=== PATIENT | male | born 1950 | race Caucasian/White ===

== ENCOUNTER 2018-02-16 14:02 | Inpatient (IN) | payer MEDICARE, OTHER ==
[~2018-02-16] VITALS: Ht 170.2 cm; Wt 59.9 kg
[2018-02-16] MEDS ORDERED: MORPHINE SULFATE 2 MG/1 ML DISP.SYRIN IV ONE ×2 (14:31→15:30)
[2018-02-16] MEDS ORDERED: TRAM50TA2 PO (14:32)
[2018-02-16] MEDS ORDERED: ERGO500040 PO (14:32)
[2018-02-16] MEDS ORDERED: TAMS0.4C34 PO (14:32)
[2018-02-16] MEDS ORDERED: FENO134C PO (14:32)
[2018-02-16] MEDS ORDERED: LEVO50TA8 PO (14:32)
[2018-02-16] MEDS ORDERED: CARV12.52 PO (14:32)
[2018-02-16] MEDS ORDERED: PANT40TA4 PO (14:32)
[2018-02-16] MEDS ORDERED: ASPI81TA31 PO (14:32)
[2018-02-16] MEDS ORDERED: COAL21.2 TP (14:32)
[2018-02-16] MEDS ORDERED: LISI2.5T2 PO (14:32)
[2018-02-16] MEDS ORDERED: SWABABLE VALVE TRANSFER SET EA MC ONE (14:34)
[2018-02-16] MEDS ORDERED: IOHEXOL 300MG/ML 100 ML INFUS..BTL ONE (14:34)
[2018-02-16] MEDS ORDERED: IV NORMAL SALINE 100 ML ONE (14:34)
[2018-02-16] MEDS ORDERED: PANTOPRAZOLE SODIUM IV 40 MG in IV DEXTROSE 5% 100 ML IV ONE (14:45)
[2018-02-16] MEDS ORDERED: ONDANSETRON IV *ER 4 MG/2 ML VIAL IV ONE (14:45)
[2018-02-16] MEDS ORDERED: IV NORMAL SALINE 500 ML IV ONE (14:45)
[2018-02-16 14:49] LABS: BASOPHILS % (AUTO) 0.3 % (0.0-2.0); EOSINOPHILS % (AUTO) 0.2 % (0.0-7.0); HEMATOCRIT 40.2 % (36.7-47.1); HEMOGLOBIN 14.1 g/dL (12.5-16.3); LYMPHOCYTES # (AUTO) 0.9 K/uL (20.0-40.0); LYMPHOCYTES % (AUTO) 9.1 % (20.5-51.5); MEAN CORPUSCULAR HGB CONC 35 g/dL (32.5-36.3); MEAN CORPUSCULAR VOLUME 85.7 fL (73.0-96.2); MONOCYTES # (AUTO) 0.4 K/uL (2.0-10.0); MONOCYTES % (AUTO) 3.9 % (0.0-11.0); NEUTROPHILS # (AUTO) 8.2 K/uL (1.8-8.9); NEUTROPHILS % (AUTO) 86.5 % (38.5-71.5); PLATELET COUNT (AUTO) 280 K/uL (152-348); RED BLOOD CELL COUNT(AUTO) 4.69 MIL/uL (4.06-5.63); WHITE BLOOD COUNT (AUTO) 9.5 K/uL (3.6-10.2)
[2018-02-16] MEDS ORDERED: PANTOPRAZOLE SODIUM 40 MG VIAL ONE (14:50)
[2018-02-16] MEDS ORDERED: ONDANSETRON 4 MG/2 ML VIAL ONE (14:50)
[2018-02-16] MEDS ORDERED: MORPHINE SULFATE 4 MG/1 ML DISP.SYRIN ONE ×2 (14:50→15:29)
[2018-02-16 14:58] LABS: CREATININE 1.1 mg/dL (0.6-1.3); POTASSIUM 4.4 mmol/L (3.5-5.1)
[2018-02-16 15:04] LABS: BILIRUBIN,TOTAL 0.4 mg/dL (0.2-1.0); TOTAL PROTEIN, SERUM 7.8 g/dL (6.4-8.2)
[2018-02-16 16:32] LABS: *BILIRUBIN,URIN NEGATIVE (NEGATIVE); *BLOOD, URINE Trace-intact (NEGATIVE); *CLARITY,URINE CLEAR (CLEAR); *COLOR,URINE YELLOW (YELLOW); *KETONES,URINE NEGATIVE (NEGATIVE); *PROTEIN,URINE 1+ (NEGATIVE); *UROBILINOGEN,URINE 0.2 E.U./dl (NORMAL); LEUKOCYTE ESTERASE ,URINE NEGATIVE (NEGATIVE); NITRITE, URINE NEGATIVE (NEGATIVE); PH,URINE 8.5 (5.0-8.0); UGLUCOSE NEGATIVE (NEGATIVE)
[2018-02-16 16:40] LABS: MUCUS,URINE MANY /LPF (0-FEW); SQUAMOUS EPITHELIAL CELL,UR FEW /HPF (NONE SEEN); WBC,URINE 0-3 /HPF (0-3)
[2018-02-16] MEDS ORDERED: HYDROMORPHONE 2 MG/1 ML DISP.SYRIN ONE (16:42)
[2018-02-16] MEDS ORDERED: HYDROMORPHONE 1 MG/1 ML DISP.SYRIN IV ONE (16:45)
--- NOTE | 2018-02-16 17:18 | NUR ---
ALL MD ORDERS COMPLETED, PT'S FAMILY AT THE BEDSIDE, MEDS ADMINISTERED, AWAITING FOR VINI LUNSFORD MD TO CALL BACK.
--- NOTE | 2018-02-16 18:10 | NUR ---
SBAR REPORT TO [facility]OK[facility], BELONGINGS LIST DONE. AWAITING FOR VINI LUNSFORD MD TO CALL BACK.
--- NOTE | 2018-02-16 18:50 | NUR ---
PT TO RM 221 VIA [facility].
--- NOTE | 2018-02-16 18:55 | NUR ---
Patient arrived on m/s unit and vitals recorded. Report given to evening or night nurse supervisor nurse to admit.
[2018-02-16 19:01] VITALS: BP 164/70
--- NOTE | 2018-02-16 20:00 | NUR ---
Received pt AAO x 4 with at bedside. Room and unit orientation provided. No s/s of acute distress noted at this time. Bed in low, locked position. Call light within reach. Will continue to monitor.
--- NOTE | 2018-02-16 21:00 | NUR ---
Pertinent assessments done. Vital signs WNL. Will continue to monitor.
[2018-02-16] MEDS ORDERED: ONDANSETRON 4 MG/2 ML VIAL IV PRN (21:30)
[2018-02-16] MEDS ORDERED: ERGOCALCIFEROL 50,000 UNIT CAPSULE PO SCH (21:30)
[2018-02-16] MEDS ORDERED: Z GUARD REMEDY PASTE 57 GM TUBE TOP PRN (21:30)
[2018-02-16] MEDS ORDERED: ZOLPIDEM 5 MG TABLET PO PRN (21:30)
[2018-02-16] MEDS ORDERED: MAGNESIUM HYDROXIDE 30 ML LIQUID UDC PO PRN (21:30)
[2018-02-16] MEDS ORDERED: ACETAMINOPHEN 325 MG TABLET PO PRN (21:30)
[2018-02-16] MEDS ORDERED: HYDROMORPHONE 1 MG/1 ML DISP.SYRIN IV PRN (21:30)
[2018-02-16] MEDS ORDERED: TAMSULOSIN HCL 0.4 MG CAP.SR.24H PO SCH (21:45)
[2018-02-16] MEDS ORDERED: CARVEDILOL 12.5 MG TABLET PO ONE (21:45)
[2018-02-16] MEDS: TRAMADOL HCL 50 MG TABLET PO PRN (22:02)
[2018-02-16] MEDS: IV NS 1000 ML 1,000 ML IV PRN (22:03)
[2018-02-16] MEDS: SUCRALFATE 1 G TABLET PO SCH (22:39)
[2018-02-17] VITALS: BP 125/55
[2018-02-17 05:26] VITALS: BP_SYST 116; BP_DIAS 66; BP_DIAS 80
--- NOTE | 2018-02-17 06:00 | NUR ---
No N/V noted throughout the night. Vital signs WNL. Will endorse accordingly.
[2018-02-17] MEDS: SUCRALFATE 1 G TABLET PO SCH ×2 (06:36→11:37)
[2018-02-17] MEDS ORDERED: PANTOPRAZOLE SODIUM 40 MG TABLET.DR PO SCH ×2 (07:00→09:00)
[2018-02-17] MEDS ORDERED: LEVOTHYROXINE SODIUM 50 MCG TABLET PO SCH ×2 (07:00→09:00)
[2018-02-17 07:03] LABS: BASOPHILS % (AUTO) 0.2 % (0.0-2.0); EOSINOPHILS % (AUTO) 0.2 % (0.0-7.0); HEMOGLOBIN 12.9 g/dL (12.5-16.3); LYMPHOCYTES # (AUTO) 1.7 K/uL (20.0-40.0); LYMPHOCYTES % (AUTO) 16.3 % (20.5-51.5); MEAN CORPUSCULAR HEMOGLOBIN 29.7 uug (23.8-33.4); MEAN CORPUSCULAR HGB CONC 35 g/dL (32.5-36.3); MEAN CORPUSCULAR VOLUME 85.4 fL (73.0-96.2); NEUTROPHILS # (AUTO) 7.5 K/uL (1.8-8.9); NEUTROPHILS % (AUTO) 73.3 % (38.5-71.5); PLATELET COUNT (AUTO) 243 K/uL (152-348); RED BLOOD CELL COUNT(AUTO) 4.33 MIL/uL (4.06-5.63); WHITE BLOOD COUNT (AUTO) 10.3 K/uL (3.6-10.2)
[2018-02-17 07:16] LABS: BILIRUBIN,TOTAL 0.3 mg/dL (0.2-1.0); CREATININE 1.1 mg/dL (0.6-1.3); MAGNESIUM 1.6 mg/dL (1.8-2.4); PHOSPHOROUS 3.4 mg/dL (2.5-4.9); POTASSIUM 4.2 mmol/L (3.5-5.1); TOTAL PROTEIN, SERUM 6.2 g/dL (6.4-8.2)
--- NOTE | 2018-02-17 08:00 | NUR ---
AWAKE ALERT AND ORIENTED X3 NO SS OF PAIN OR DISTRESS, SR ON MONITOR
--- NOTE | 2018-02-17 08:44 | NUR ---
protonix po given at 0647
[2018-02-17] MEDS ORDERED: ASPIRIN 81 MG TAB.CHEW PO SCH (09:00)
[2018-02-17] MEDS ORDERED: TAMSULOSIN HCL 0.4 MG CAP.SR.24H PO SCH ×2 (09:00)
[2018-02-17] MEDS ORDERED: CARVEDILOL 12.5 MG TABLET PO SCH (09:00)
[2018-02-17] MEDS ORDERED: LISINOPRIL 5 MG TABLET PO SCH (09:00)
[2018-02-17] MEDS ORDERED: KETOCONAZOLE 2% CREAM 30 GM TUBE TP SCH (09:00)
--- NOTE | 2018-02-17 10:00 | NUR ---
HOSPITALIST NOTED LABS WITH ORDER FOR MAGNESIUM REPLACEMENT
[2018-02-17] MEDS ORDERED: HYDROMORPHONE 2 MG/1 ML DISP.SYRIN IV PRN (10:45)
[2018-02-17] MEDS: MAGNESIUM SULFATE/D5W 100 ML IV SCH ×4 (11:09→13:32)
[2018-02-17 11:10] VITALS: BP 108/46
[2018-02-17] MEDS: IV NS 1000 ML 1,000 ML IV PRN (11:18)
[2018-02-17] MEDS: TRAMADOL HCL 50 MG TABLET PO PRN (11:18)
--- NOTE | 2018-02-17 12:00 | NUR ---
SEEN BY DR LICEA WITH DC ORDER, DIVER TENDER MADE AWARE SO WITH FAMILY
[2018-02-17 15:06] VITALS: BP 112/52
--- NOTE | 2018-02-17 16:28 | NUR ---
DCD HOME STABLE ACCOMPANIED BY WITH FOLLOW-UP INSTRUCTION
== END 2018-02-17 16:25 | disposition home or self-care (01) | DRG 391 ==
LOC: ER 14:04 → MED 18:40 → TELE 02-17 01:45 → MED 02-17 12:18
PROVIDERS: ADMIT Nurse Practitioner Acute Care; ATTEND Nurse Practitioner Acute Care
DX: K21.9 Gastro-esophageal reflux disease without esophagitis (principal); N17.0 Acute kidney failure with tubular necrosis; R10.9 Unspecified abdominal pain; C61 Malignant neoplasm of prostate; I10 Essential (primary) hypertension; I25.10 Atherosclerotic heart disease of native coronary artery without angina pectoris; E03.9 Hypothyroidism, unspecified; I25.2 Old myocardial infarction; I25.5 Ischemic cardiomyopathy; Z87.891 Personal history of nicotine dependence; Z92.3 Personal history of irradiation; Z95.0 Presence of cardiac pacemaker; Z95.1 Presence of aortocoronary bypass graft; L21.9 Seborrheic dermatitis, unspecified; Z79.899 Other long term (current) drug therapy; R93.5 Abnormal findings on diagnostic imaging of other abdominal regions, including retroperitoneum; K29.70 Gastritis, unspecified, without bleeding
CPT/HCPCS: 36415; 70030-TC; 71045; 83690; 83735; 84100; 85025; 85610; 93005; 93307; A4663; C9113; J1170; J2270; J2405; J3475; J3490; J7030; J7040; Q9967

== ENCOUNTER 2018-06-28 14:32 | Inpatient (IN) | payer MEDICARE, OTHER ==
[~2018-06-28] VITALS: Ht 170.2 cm; Wt 62.6 kg
[~2018-06-28 14:32] MED LIST: ASPI81TA31 PO; CARV12.52 PO; COAL21.2 TP; ERGO500040 PO; FENO134C PO; LEVO50TA8 PO; LISI2.5T2 PO; PANT40TA4 PO; TAMS0.4C34 PO; TRAM50TA2 PO
[2018-06-28] MEDS ORDERED: MORPHINE SULFATE 4 MG/1 ML DISP.SYRIN IV ONE ×2 (14:45→16:00)
[2018-06-28] MEDS ORDERED: ONDANSETRON 4 MG/2 ML VIAL IV ONE (14:45)
[2018-06-28 14:52] LABS: BASOPHILS # (AUTO) 0.1 K/uL (0.0-8.0); BASOPHILS % (AUTO) 0.6 % (0.0-2.0); HEMATOCRIT 41.6 % (36.7-47.1); HEMOGLOBIN 14.4 g/dL (12.5-16.3); LYMPHOCYTES # (AUTO) 0.6 K/uL (20.0-40.0); LYMPHOCYTES % (AUTO) 4.9 % (20.5-51.5); MEAN CORPUSCULAR HGB CONC 35 g/dL (32.5-36.3); MEAN CORPUSCULAR VOLUME 87.1 fL (73.0-96.2); MONOCYTES # (AUTO) 0.6 K/uL (2.0-10.0); MONOCYTES % (AUTO) 4.3 % (0.0-11.0); NEUTROPHILS # (AUTO) 11.7 K/uL (1.8-8.9); NEUTROPHILS % (AUTO) 90.2 % (38.5-71.5); PLATELET COUNT (AUTO) 208 K/uL (152-348); RED BLOOD CELL COUNT(AUTO) 4.78 MIL/uL (4.06-5.63)
[2018-06-28] MEDS ORDERED: ONDANSETRON 4 MG/2 ML VIAL ONE (14:55)
[2018-06-28] MEDS ORDERED: MORPHINE SULFATE 4 MG/1 ML DISP.SYRIN ONE ×2 (14:55→16:10)
[2018-06-28 15:04] LABS: POTASSIUM 4.1 mmol/L (3.5-5.1)
[2018-06-28 15:10] LABS: BILIRUBIN,DIRECT 0.1 mg/dL (0.0-0.2); BILIRUBIN,TOTAL 0.5 mg/dL (0.2-1.0); TOTAL PROTEIN, SERUM 7.6 g/dL (6.4-8.2)
--- NOTE | 2018-06-28 16:00 | NUR ---
Pt signed consent for CT w/ IV contast, placed in the chart.
[2018-06-28 16:03] LABS: *BILIRUBIN,URIN 1+ (NEGATIVE); *BLOOD, URINE Trace-intact (NEGATIVE); *CLARITY,URINE CLEAR (CLEAR); *COLOR,URINE DARK YELLOW (YELLOW); *KETONES,URINE NEGATIVE (NEGATIVE); *PROTEIN,URINE TRACE (NEGATIVE); *UROBILINOGEN,URINE 0.2 E.U./dl (NORMAL); LEUKOCYTE ESTERASE ,URINE NEGATIVE (NEGATIVE); NITRITE, URINE NEGATIVE (NEGATIVE); PH,URINE 6.5 (5.0-8.0); UGLUCOSE NEGATIVE (NEGATIVE)
[2018-06-28 16:09] LABS: BACTERIA,URINE FEW /HPF (NONE SEEN); MUCUS,URINE MODERATE /LPF (0-FEW); RBC,URINE 0-3 /HPF (0-3); SQUAMOUS EPITHELIAL CELL,UR FEW /HPF (NONE SEEN)
--- NOTE | 2018-06-28 16:30 | NUR ---
Pt out of ER for CT.
[2018-06-28] MEDS ORDERED: NORMAL SALINE FLUSH 10 ML DISP.SYRIN ONE (16:52)
[2018-06-28] MEDS ORDERED: IV NORMAL SALINE 250 ML IV ONE (16:52)
[2018-06-28] MEDS ORDERED: IOHEXOL 300MG/ML 100 ML INFUS..BTL ONE (16:52)
[2018-06-28] MEDS ORDERED: SWABABLE VALVE TRANSFER SET EA MC ONE (16:52)
--- NOTE | 2018-06-28 17:13 | NUR ---
Pt back from CT, chichi nausea and pain.
--- NOTE | 2018-06-28 17:36 | NUR ---
Call placed to Dr. Farfan (SURGERY), message left for return call.
[2018-06-28] MEDS ORDERED: CEFTRIAXONE 1 G VIAL ONE (17:55)
[2018-06-28] MEDS ORDERED: METRONIDAZOLE 500 MG/NS 100ML 100 ML IV ONE (17:55)
[2018-06-28] MEDS ORDERED: CHOL500062 PO (17:56)
[2018-06-28] MEDS ORDERED: ESCI10TA PO (17:56)
[2018-06-28] MEDS ORDERED: ICOS1CAP PO (17:56)
[2018-06-28] MEDS ORDERED: METRONIDAZOLE 500 MG/NS 100 ML PIGGYBACK IV ONE (18:00)
[2018-06-28] MEDS ORDERED: CEFTRIAXONE 2 G in IV DEXTROSE 5% 100 ML IV ONE (18:00)
--- NOTE | 2018-06-28 18:00 | NUR ---
JOHN spoke to Dr. Farfan (SURGERY) and Dr. Fuller ([facility]).
[2018-06-28] MEDS ORDERED: ACETAMINOPHEN 325 MG TABLET PO PRN (19:30)
[2018-06-28] MEDS ORDERED: MORPHINE SULFATE 2 MG/1 ML DISP.SYRIN IV PRN (19:30)
[2018-06-28] MEDS ORDERED: MAGNESIUM HYDROXIDE 30 ML LIQUID UDC PO PRN (19:30)
[2018-06-28] MEDS ORDERED: Z GUARD REMEDY PASTE 57 GM TUBE TOP PRN (19:30)
[2018-06-28] MEDS ORDERED: ONDANSETRON 4 MG/2 ML VIAL IV PRN (19:30)
--- NOTE | 2018-06-28 19:30 | NUR ---
Received patient from day shift nurse. Patient is a new admit from ER, arrived to unit at 1900. MD aware of patient arrival. Admit Dx of Cholecystitis. Patient is in stable condition with no acute distress noted. Vital signs within range upon admission. Pertinent assessment completed. A/Ox4, Kazakh speaking, able to speak broken Kyrgyz. Family currently at the bedside. Noted with Left AC IV site 20G running with NS at 75cc/hr. No infiltration or swelling noted at IV site. Patient denies pain & SOB. Call light within reach of patient. Will continue to monitor through shift.
[2018-06-28 19:55] VITALS: BP 152/58
[2018-06-28] MEDS: IV NS 1000 ML 1,000 ML IV PRN (20:00)
[2018-06-28] MEDS ORDERED: PIPERACILLIN/TAZO 4.5 GM VIAL IV ONE (21:29)
[2018-06-28] MEDS: PIPERACILLIN SODIUM/TAZOBACTAM 4.5 G in IV DEXTROSE 5% 50 ML IV SCH (21:40)
--- NOTE | 2018-06-28 21:45 | NUR ---
Spoke with MD Mack about patient with new orders for CBC in AM, Cardio consult for Preop assessment & clearance, & MD ordered Hida scan for tomorrow. Called family & informed them about about consent for Hida scan. Family to come in AM to go over consent with patient. Will carry out orders & continue to monitor through shift.
[2018-06-29 04:13] VITALS: BP 145/56
[2018-06-29] MEDS: PIPERACILLIN SODIUM/TAZOBACTAM 4.5 G in IV DEXTROSE 5% 50 ML IV SCH ×3 (05:30→22:04)
[2018-06-29 05:54] LABS: BASOPHILS % (AUTO) 0.3 % (0.0-2.0); HEMATOCRIT 39.7 % (36.7-47.1); HEMOGLOBIN 13.9 g/dL (12.5-16.3); LYMPHOCYTES % (AUTO) 10.3 % (20.5-51.5); MEAN CORPUSCULAR HEMOGLOBIN 30.4 uug (23.8-33.4); MEAN CORPUSCULAR HGB CONC 35 g/dL (32.5-36.3); MONOCYTES # (AUTO) 0.7 K/uL (2.0-10.0); MONOCYTES % (AUTO) 6.7 % (0.0-11.0); NEUTROPHILS # (AUTO) 8.1 K/uL (1.8-8.9); NEUTROPHILS % (AUTO) 82.7 % (38.5-71.5); PLATELET COUNT (AUTO) 220 K/uL (152-348); RED BLOOD CELL COUNT(AUTO) 4.57 MIL/uL (4.06-5.63); WHITE BLOOD COUNT (AUTO) 9.8 K/uL (3.6-10.2)
[2018-06-29] MEDS: LEVOTHYROXINE SODIUM 50 MCG TABLET PO SCH (06:13)
[2018-06-29 06:21] LABS: BILIRUBIN,TOTAL 0.4 mg/dL (0.2-1.0); CREATININE 1.2 mg/dL (0.6-1.3); MAGNESIUM 1.7 mg/dL (1.8-2.4); PHOSPHOROUS 3.7 mg/dL (2.5-4.9); POTASSIUM 3.9 mmol/L (3.5-5.1); TOTAL PROTEIN, SERUM 6.6 g/dL (6.4-8.2)
--- NOTE | 2018-06-29 06:29 | NUR ---
Patient slept well through shift. No complaints of pain during the night. All needs attended to promptly. Medications administered as per MD order. Per LAB, patient should be NPO for 4 hours prior to Hida Scan. Patient started NPO at 5am. Comfort & safety measures provided to patient. Call light within reach. Will endorse to day shift nurse.
[2018-06-29] MEDS ORDERED: MORPHINE SULFATE 4 MG/1 ML DISP.SYRIN IV PRN (08:15)
[2018-06-29] MEDS: ESCITALOPRAM OXALATE 10 MG TABLET PO SCH (08:20)
[2018-06-29] MEDS: ASPIRIN 81 MG TAB.CHEW PO SCH (08:21)
[2018-06-29] MEDS: CARVEDILOL 12.5 MG TABLET PO SCH ×2 (08:21→17:03)
[2018-06-29] MEDS: TAMSULOSIN HCL 0.4 MG CAP.SR.24H PO SCH (08:21)
[2018-06-29] MEDS: PANTOPRAZOLE SODIUM 40 MG TABLET.DR PO SCH (08:22)
[2018-06-29] MEDS ORDERED: MAGNESIUM SULFATE/D5W 100 ML IV SCH (10:45)
[2018-06-29 11:32] VITALS: BP 126/57
[2018-06-29] MEDS ORDERED: ERGOCALCIFEROL 50,000 UNIT CAPSULE PO SCH (12:00)
[2018-06-29] MEDS: IV NS 1000 ML 1,000 ML IV PRN (15:00)
[2018-06-29 15:48] VITALS: BP 134/56
[2018-06-29 17:45] LABS: *BILIRUBIN,URIN NEGATIVE (NEGATIVE); *BLOOD, URINE Trace-lysed (NEGATIVE); *CLARITY,URINE CLEAR (CLEAR); *COLOR,URINE YELLOW (YELLOW); *KETONES,URINE NEGATIVE (NEGATIVE); *PROTEIN,URINE NEGATIVE (NEGATIVE); *UROBILINOGEN,URINE 0.2 E.U./dl (NORMAL); LEUKOCYTE ESTERASE ,URINE NEGATIVE (NEGATIVE); NITRITE, URINE NEGATIVE (NEGATIVE); PH,URINE 5.5 (5.0-8.0); UGLUCOSE NEGATIVE (NEGATIVE)
[2018-06-29 18:08] LABS: BACTERIA,URINE FEW /HPF (NONE SEEN); SQUAMOUS EPITHELIAL CELL,UR FEW /HPF (NONE SEEN); WBC,URINE 0-3 /HPF (0-3)
[2018-06-29 18:09] LABS: MUCUS,URINE FEW /LPF (0-FEW)
[2018-06-29 19:00] VITALS: BP 137/51
--- NOTE | 2018-06-29 20:00 | NUR ---
Received pt with family at bedside. No s/s of acute distress observed at this time. Safe environment implemented. Call light within reach.
[2018-06-29] MEDS: ATORVASTATIN 20 MG TABLET PO SCH (20:20)
[2018-06-29] MEDS: HYDROCODONE/APAP 5-325MG TABLET PO PRN (20:33)
--- NOTE | 2018-06-29 20:40 | NUR ---
Dr. Mack in room for consult at this time. Received orders to keep pt NPO after midnight as pt is planned to have surgery 06/30. Family aware, will continue to monitor closely. Call light within reach.
[2018-06-30] VITALS (9 sets, daily range): BP systolic 151–173; BP diastolic 60–69
[2018-06-30] MEDS: LEVOTHYROXINE SODIUM 50 MCG TABLET PO SCH (06:12)
[2018-06-30] MEDS: PIPERACILLIN SODIUM/TAZOBACTAM 4.5 G in IV DEXTROSE 5% 50 ML IV SCH ×3 (06:12→21:45)
[2018-06-30] MEDS: IV NS 1000 ML 1,000 ML IV PRN (06:12)
[2018-06-30] MEDS: PANTOPRAZOLE SODIUM 40 MG TABLET.DR PO SCH (06:12)
--- NOTE | 2018-06-30 06:30 | NUR ---
Pt noted to have elevated BP at this time, pt asymptomatic- denies dizziness, chest pain and blurry vision at this time. Per pt, this blood pressure has been his baseline in the morning time. Safe environment implemented.
[2018-06-30 06:33] LABS: BASOPHILS % (AUTO) 0.2 % (0.0-2.0); EOSINOPHILS % (AUTO) 0.5 % (0.0-7.0); HEMATOCRIT 37.9 % (36.7-47.1); HEMOGLOBIN 13.4 g/dL (12.5-16.3); LYMPHOCYTES # (AUTO) 0.9 K/uL (20.0-40.0); LYMPHOCYTES % (AUTO) 12.2 % (20.5-51.5); MEAN CORPUSCULAR HGB CONC 35 g/dL (32.5-36.3); MEAN CORPUSCULAR VOLUME 85.1 fL (73.0-96.2); MONOCYTES # (AUTO) 0.5 K/uL (2.0-10.0); NEUTROPHILS # (AUTO) 5.7 K/uL (1.8-8.9); NEUTROPHILS % (AUTO) 80.1 % (38.5-71.5); PLATELET COUNT (AUTO) 193 K/uL (152-348); RED BLOOD CELL COUNT(AUTO) 4.45 MIL/uL (4.06-5.63); WHITE BLOOD COUNT (AUTO) 7.1 K/uL (3.6-10.2)
[2018-06-30] MEDS ORDERED: GLYCOPYRROLATE 0.2 MG/ML VIAL MC ONE (07:24)
[2018-06-30] MEDS ORDERED: ETOMIDATE 20 MG/10 ML VIAL MC ONE (07:24)
[2018-06-30] MEDS ORDERED: PROPOFOL 200 MG/20 ML BOTTLE IV ONE (07:24)
[2018-06-30] MEDS ORDERED: NEOSTIGMINE METHYLSULFATE 10 MG/10 ML VIAL IV ONE (07:24)
[2018-06-30] MEDS ORDERED: ONDANSETRON 4 MG/2 ML VIAL IV ONE (07:24)
[2018-06-30] MEDS ORDERED: IV LACTATED RINGERS SOLUTION 1,000 ML BAG IV ONE (07:24)
[2018-06-30] MEDS ORDERED: DEXAMETHASONE SOD PHOSPHATE 4 MG INJ IV ONE (07:24)
[2018-06-30] MEDS ORDERED: LIDOCAINE HCL 1% 20 ML VIAL MC ONE (07:24)
[2018-06-30] MEDS ORDERED: SEVOFLURANE 250 ML BOTTLE IH ONE (07:24)
[2018-06-30] MEDS: TAMSULOSIN HCL 0.4 MG CAP.SR.24H PO SCH (08:04)
[2018-06-30] MEDS: ASPIRIN 81 MG TAB.CHEW PO SCH (08:04)
[2018-06-30] MEDS: ESCITALOPRAM OXALATE 10 MG TABLET PO SCH (08:04)
[2018-06-30] MEDS: CARVEDILOL 12.5 MG TABLET PO SCH ×2 (08:05→17:54)
[2018-06-30 08:22] LABS: THYROID STIMULATING HORMONE 0.786 mIU/mL (0.358-3.740)
[2018-06-30 08:33] LABS: BILIRUBIN,TOTAL 0.5 mg/dL (0.2-1.0); MAGNESIUM 2.1 mg/dL (1.8-2.4); PHOSPHOROUS 2.4 mg/dL (2.5-4.9); POTASSIUM 3.6 mmol/L (3.5-5.1); TOTAL PROTEIN, SERUM 6.6 g/dL (6.4-8.2)
[2018-06-30] MEDS ORDERED: POTASSIUM PHOSPHATE MM 7.5 MMOL in IV DEXTROSE 5% 100 ML IV ONE (13:00)
[2018-06-30] MEDS ORDERED: LIDOCAINE 1%-EPI 1:100,000 20 ML VIAL ONE (14:47)
[2018-06-30] MEDS ORDERED: BUPIVACAINE 0.25% 30 ML VIAL ONE (14:48)
--- NOTE | 2018-06-30 15:14 | NUR ---
pt went to or via bed in stable condition for surgery
[2018-06-30] MEDS ORDERED: HYDROMORPHONE 2 MG/1 ML DISP.SYRIN ONE (15:31)
[2018-06-30] MEDS ORDERED: SUCCINYLCHOLINE CHLORIDE 200 MG/10 ML VIAL ONE (15:32)
[2018-06-30] MEDS ORDERED: ROCURONIUM BROMIDE 50 MG/5 ML VIAL ONE (15:32)
[2018-06-30] MEDS ORDERED: FENTANYL CITRATE 100 MCG/2 ML AMPUL ONE (19:22)
--- NOTE | 2018-06-30 19:55 | NUR ---
Pt came back from surgery, s/p lap cholecystectomy, with 4 lap sites, intact. Orders received. Pt now on Tele, SR. Family at bedside. No c/o pain at this time.
[2018-06-30] MEDS: ATORVASTATIN 20 MG TABLET PO SCH (20:24)
[2018-06-30] MEDS: hydrALAZINE HCL 25 MG TABLET PO PRN (20:25)
--- NOTE | 2018-06-30 20:25 | NUR ---
BP elevated 173/69, hydralazine given as ordered, Will monitor.
[2018-06-30] MEDS ORDERED: CARVEDILOL 12.5 MG TABLET PO ONE (22:43)
[2018-07-01 03:39] VITALS: BP 164/63
[2018-07-01] MEDS: IV NS 1000 ML 1,000 ML IV PRN (04:33)
[2018-07-01] MEDS: hydrALAZINE HCL 25 MG TABLET PO PRN (05:49)
[2018-07-01] MEDS: LEVOTHYROXINE SODIUM 50 MCG TABLET PO SCH (06:15)
[2018-07-01] MEDS: PANTOPRAZOLE SODIUM 40 MG TABLET.DR PO SCH (06:15)
[2018-07-01] MEDS: HYDROCODONE/APAP 5-325MG TABLET PO PRN ×3 (06:20→20:10)
--- NOTE | 2018-07-01 06:48 | NUR ---
C/o pain on R leg, given [place] as requested. Pt resting in bed at this time. IV fluids still running.
[2018-07-01 06:54] LABS: BASOPHILS % (AUTO) 0.2 % (0.0-2.0); EOSINOPHILS % (AUTO) 0.1 % (0.0-7.0); HEMATOCRIT 35.8 % (36.7-47.1); HEMOGLOBIN 12.7 g/dL (12.5-16.3); LYMPHOCYTES # (AUTO) 1.1 K/uL (20.0-40.0); LYMPHOCYTES % (AUTO) 11.9 % (20.5-51.5); MEAN CORPUSCULAR HEMOGLOBIN 30.1 uug (23.8-33.4); MEAN CORPUSCULAR HGB CONC 35 g/dL (32.5-36.3); MEAN CORPUSCULAR VOLUME 85.2 fL (73.0-96.2); MONOCYTES # (AUTO) 0.7 K/uL (2.0-10.0); MONOCYTES % (AUTO) 8.2 % (0.0-11.0); NEUTROPHILS # (AUTO) 7.2 K/uL (1.8-8.9); NEUTROPHILS % (AUTO) 79.6 % (38.5-71.5); PLATELET COUNT (AUTO) 193 K/uL (152-348); RED BLOOD CELL COUNT(AUTO) 4.21 MIL/uL (4.06-5.63)
[2018-07-01 07:11] LABS: BILIRUBIN,TOTAL 0.4 mg/dL (0.2-1.0); CREATININE 0.9 mg/dL (0.6-1.3); MAGNESIUM 1.8 mg/dL (1.8-2.4); PHOSPHOROUS 3.7 mg/dL (2.5-4.9); POTASSIUM 3.7 mmol/L (3.5-5.1); TOTAL PROTEIN, SERUM 6.3 g/dL (6.4-8.2)
[2018-07-01] MEDS: ASPIRIN 81 MG TAB.CHEW PO SCH (08:00)
[2018-07-01] MEDS: ESCITALOPRAM OXALATE 10 MG TABLET PO SCH (08:00)
[2018-07-01] MEDS: CARVEDILOL 25 MG TABLET PO SCH ×2 (08:00→17:05)
[2018-07-01] MEDS: TAMSULOSIN HCL 0.4 MG CAP.SR.24H PO SCH (08:00)
[2018-07-01] MEDS: AMLODIPINE 5 MG TABLET PO SCH (10:45)
[2018-07-01 11:49] VITALS: BP 112/43
[2018-07-01 16:00] VITALS: BP 128/45
[2018-07-01 20:00] VITALS: BP 111/45
--- NOTE | 2018-07-01 20:00 | NUR ---
Received pt alert and oriented x 3, complaining of pain on R lower extremity. Pain management will be provided as ordered, lower extremities elevated as ordered. No s/s of acute distress noted at this time. Safe environment implemented. Call light within reach.
[2018-07-01] MEDS: ATORVASTATIN 20 MG TABLET PO SCH (20:04)
[2018-07-02] MEDS: HYDROCODONE/APAP 5-325MG TABLET PO PRN ×3 (02:18→15:23)
[2018-07-02 04:00] VITALS: BP 138/66
[2018-07-02 06:06] LABS: BASOPHILS % (AUTO) 0.3 % (0.0-2.0); EOSINOPHILS # (AUTO) 0.1 K/uL (0.0-0.7); EOSINOPHILS % (AUTO) 0.9 % (0.0-7.0); HEMATOCRIT 34.3 % (36.7-47.1); LYMPHOCYTES # (AUTO) 1.1 K/uL (20.0-40.0); LYMPHOCYTES % (AUTO) 16.2 % (20.5-51.5); MEAN CORPUSCULAR HEMOGLOBIN 29.8 uug (23.8-33.4); MEAN CORPUSCULAR HGB CONC 35 g/dL (32.5-36.3); MONOCYTES # (AUTO) 0.6 K/uL (2.0-10.0); NEUTROPHILS # (AUTO) 4.8 K/uL (1.8-8.9); NEUTROPHILS % (AUTO) 73.6 % (38.5-71.5); PLATELET COUNT (AUTO) 188 K/uL (152-348); RED BLOOD CELL COUNT(AUTO) 4.04 MIL/uL (4.06-5.63); WHITE BLOOD COUNT (AUTO) 6.5 K/uL (3.6-10.2)
--- NOTE | 2018-07-02 06:19 | NUR ---
Patient stable condition. Pain management provided as ordered. Safe environment implemented
[2018-07-02 06:21] LABS: BILIRUBIN,TOTAL 0.4 mg/dL (0.2-1.0); MAGNESIUM 1.8 mg/dL (1.8-2.4); PHOSPHOROUS 2.5 mg/dL (2.5-4.9); POTASSIUM 3.4 mmol/L (3.5-5.1)
[2018-07-02] MEDS: LEVOTHYROXINE SODIUM 50 MCG TABLET PO SCH (06:22)
[2018-07-02] MEDS: PANTOPRAZOLE SODIUM 40 MG TABLET.DR PO SCH (06:22)
[2018-07-02] MEDS: ASPIRIN 81 MG TAB.CHEW PO SCH (08:13)
[2018-07-02] MEDS: AMLODIPINE 5 MG TABLET PO SCH (08:13)
[2018-07-02] MEDS: CARVEDILOL 25 MG TABLET PO SCH (08:13)
[2018-07-02] MEDS: ESCITALOPRAM OXALATE 10 MG TABLET PO SCH (08:13)
[2018-07-02] MEDS: TAMSULOSIN HCL 0.4 MG CAP.SR.24H PO SCH (08:13)
[2018-07-02] MEDS ORDERED: POTASSIUM CHLORIDE 20 MEQ TAB.PRT.SR PO ONE (11:15)
[2018-07-02 11:20] VITALS: BP 113/44
[2018-07-02] MEDS ORDERED: LACTOBACILLUS RHAMNOSUS GG 1 EACH CAPSULE PO SCH (14:30)
[2018-07-02] MEDS ORDERED: CEPHALEXIN MONOHYDRATE 500 MG CAPSULE PO SCH (14:30)
[2018-07-02] MEDS ORDERED: ATOR20TA PO (14:37)
[2018-07-02] MEDS ORDERED: AMLO5TAB7 PO (14:37)
[2018-07-02] MEDS ORDERED: LACT1CAP57 PO (14:37)
[2018-07-02] MEDS ORDERED: CEPH500C2 PO (14:37)
[2018-07-02] MEDS ORDERED: HYDR-3326 PO (14:37)
[2018-07-02] MEDS ORDERED: CARV25TA2 PO (14:37)
[2018-07-02 15:17] VITALS: BP 110/70
--- NOTE | 2018-07-02 15:59 | NUR ---
Nutrition consult: s/p lap cholecystectomy diet recommendation Visited pt at bedside, pt was waiting on being discharged. KENAN provided patient and family with diet recommendation education for cholecystectomy. KENAN also provided materials on that matter. Patient and family perceived the education well. Addendum: 07/02/18 at [address] Amended: Links added.
--- NOTE | 2018-07-02 16:50 | NUR ---
PT D/C WITH ALL EXIT CARE PACKET, BELONGINGS, VALUABLES AND PRESCRIPTIONS. APPOINTMENT WAS MADE FOR [facility] ON 07/06/18Thursday AT 1300. [address]ESS [id number] [id number] [facility] [id number]. PHONE # [phone]. PT ID BAND AND IV REMOVED. PT STABLE TO MD.
[2018-07-02 17:17] VITALS: BP 110/70
== END 2018-07-02 17:05 | disposition home or self-care (01) | DRG 418 ==
LOC: ER 14:32 → MED 18:11 → TELE 06-30 20:11 → MED 07-01 17:05
PROVIDERS: ADMIT Internal Medicine; ATTEND Internal Medicine
PROC: 0DNU4ZZ Release Omentum, Percutaneous Endoscopic Approach (ICD-10-PCS; 2018-06-30)
PROC: 0FT44ZZ Resection of Gallbladder, Percutaneous Endoscopic Approach (ICD-10-PCS; principal; 2018-06-30 16:23)
DX: K80.01 Calculus of gallbladder with acute cholecystitis with obstruction (principal); K82.1 Hydrops of gallbladder; I74.5 Embolism and thrombosis of iliac artery; K82.8 Other specified diseases of gallbladder; I25.10 Atherosclerotic heart disease of native coronary artery without angina pectoris; Z95.1 Presence of aortocoronary bypass graft; I25.5 Ischemic cardiomyopathy; I10 Essential (primary) hypertension; E03.9 Hypothyroidism, unspecified; C61 Malignant neoplasm of prostate; Z92.3 Personal history of irradiation; Z79.82 Long term (current) use of aspirin; K76.0 Fatty (change of) liver, not elsewhere classified; K44.9 Diaphragmatic hernia without obstruction or gangrene; I25.2 Old myocardial infarction; E88.09 Other disorders of plasma-protein metabolism, not elsewhere classified; E83.51 Hypocalcemia; E87.6 Hypokalemia; E83.42 Hypomagnesemia; K21.9 Gastro-esophageal reflux disease without esophagitis; E83.39 Other disorders of phosphorus metabolism; E78.5 Hyperlipidemia, unspecified; D64.9 Anemia, unspecified; I73.9 Peripheral vascular disease, unspecified; L40.9 Psoriasis, unspecified; G89.29 Other chronic pain; Z95.810 Presence of automatic (implantable) cardiac defibrillator; N30.90 Cystitis, unspecified without hematuria
CPT/HCPCS: 36415; 70030-TC; 71045; 78445; 83690; 83735; 84100; 84443; 85025; 87070; 87075; 87086; 87205; 93005; 97116; 97530; A4663; A9537; J0330; J0696; J1100; J1170; J2270; J2405; J2543; J2710; J3010; J3475; J3490; J7030; J7050; J7060; J7120; L8699; Q9967